=== PATIENT | male | born 1960 | race Caucasian/White ===

== ENCOUNTER 2020-02-18 07:34 | Day surgery (SDC) | payer MEDICAID, SELFPAY ==
[2020-02-15 12:55] VITALS: BMI 26.4
[2020-02-18 07:55] VITALS: BP 154/89; PULSE 77; RESP 18; TEMP 36.6; O2SAT 96
[2020-02-18] MEDS: sodium chloride 0.9% 1,000 ML 30 ML IV (08:08)
--- NOTE | 2020-02-18 08:14 | ANES.PREANE2 ---
Pre-Anesthetic Assessment Pre-Anesthetic Assessment: Height/Weight: Height 1.85 m Weight 90.718 kg Temp Pulse Resp BP Pulse Ox 97.8 F 77 18 154/89 96 02/18/20 07:55 02/18/20 07:55 02/18/20 07:55 02/18/20 07:55 02/18/20 07:55 Proposed Procedure: Operation Date: 02/18/20 09:00 Proposed Procedures p Colonoscopy G0105 Z80.0(Not Applicable) - Zacarias Elkins MD Familial anesthetic complications: denies Was Beta Romulo taken within 24 hours: N/A Last intake: Intake Last Liquid Date 02/17/20 Last Liquid Time 19:00 Last Solid Date 02/16/20 Last Solid Time 23:00 Last Intake: 00:00 Social: Social History: Tobacco and No alcohol Packs per day: 1 ppd Pack years: 43 Exam: Pre-Anes Outpt Exam: alert, oriented x 3 and clear to auscultation bilaterally Airway: Submandibular: WNL Cervical ROM: WNL MP: 2 Pulmonary: Pulmonary: COPD CV/HEM: CV/HEM: HTN : : None reported Hepatic: Hepatic: None reported GI: GI: GERD (denies ) and None reported Metabolic: Metabolic: None reported Musc/skel: Musc/skel: Lower Back Pain (upper back pain neck and shoulder ) Neuropsych: Neuropsych: None reported Anesthetic Plan: ASA status: 2 Anesthesia: Anesthesia Evaluation and MAC Meds/Allergies Current Medications: Current Medications Generic Name Dose Route Start Last Admin Trade Name Freq PRN Reason Stop Dose Admin Sodium Chloride 1,000 mls @ 30 ml s/hr 02/18/20 08:00 02/18/20 08:08 Sodium Chloride 0.9% IV 30 mls/hr .Q24H [place] Administration PFSH Anesthesia PFSH: Medical History (Updated 12/26/19 @ 11:17 by Zacarias Elkins MD) HTN (hypertension) Family History Father Cancer colon COPD (chronic obstructive pulmonary disease) Data Anesthesia Cardiac Studies: No Data to Display
--- NOTE | 2020-02-18 09:21 | PM.OPSURHP ---
Providers/Chief Complaint Primary Care Provider: Zacarias Elkins MD Chief Complaint: colonscopy History of Present Illness Nico Maya is a 59 year old male Medications/Allergies Home Medications Medication Instructions Recorded Confirmed Last Taken Type tizanidine 4 mg tablet 6 mg PO .at bedtime PRN #45 tab 11/05/19 02/15/20 02/17/20 Rx amlodipine 5 mg-benazepril 20 mg 1 cap PO DAILY #90 cap 12/03/19 02/15/20 02/18/20 06:30 Rx capsule aspirin 325 mg tablet 325 mg PO BID 12/26/19 02/15/20 02/15/20 History multivitamin 1 tab PO DAILY 12/26/19 02/15/20 02/15/20 History psyllium husk 0.52 gram capsule 0.52 gm PO DAILY 12/26/19 02/15/20 02/15/20 History tramadol 50 mg tablet 50 mg PO Q6H PRN #120 tab 01/22/20 02/15/20 02/17/20 Rx Allergies Allergy/AdvReac Type Severity Reaction Status Date / Time No Known Allergies Allergy Verified 12/26/19 11:00 PFSH PFSH: Medical History (Updated 12/26/19 @ 11:17 by Zacarias Elkins MD) HTN (hypertension) Family History Father Cancer colon COPD (chronic obstructive pulmonary disease) Vital Signs Vitals Signs: Last Vital Signs Temp 97.8 F 02/18/20 07:55 Pulse 77 02/18/20 07:55 Resp 18 02/18/20 07:55 BP 154/89 02/18/20 07:55 Pulse Ox 96 02/18/20 07:55 Coding Level of Care Code Acute Overhead [employer] for [facility]
[2020-02-18 09:46] VITALS: BP 156/79; PULSE 61; RESP 16; TEMP 36.2; O2SAT 98
--- NOTE | 2020-02-18 09:56 | ANE.PACU2 ---
Inpatient post-anesthesia follow up: Airway intact: Yes Vital signs: Temperature 97.2 F Pulse Rate 61 Respiratory Rate 16 Blood Pressure 156/79 Pulse Oximetry 98 Oxygen Delivery Me thod Nasal Cannula Oxygen Flow Rate 3.0 Fraction of Inspir ed Oxygen Hydration adequate: No Nausea and vomiting: No Pain level: 1 Mental status: Baseline
[2020-02-18 09:57] VITALS: BP 154/81; PULSE 61; RESP 18; O2SAT 97
== END 2020-02-18 10:05 | disposition home or self-care (01) ==
PROVIDERS: PCP Internal Medicine; Visit Provider Internal Medicine
PROC: 0DJD8ZZ Inspection of Lower Intestinal Tract, Via Natural or Artificial Opening Endoscopic (ICD-10-PCS; CPT 45378; principal; 2020-02-18 09:00)
DX: Z80.0 Family history of malignant neoplasm of digestive organs (principal); D12.4 Benign neoplasm of descending colon; J44.9 Chronic obstructive pulmonary disease, unspecified; I10 Essential (primary) hypertension; K21.9 Gastro-esophageal reflux disease without esophagitis
CPT/HCPCS: 12345; 45385; 88305; J2704; J7030

== ENCOUNTER → 2022-04-12 15:56 | Outpatient (BNVA) | payer MEDICAID, SELFPAY | PROVIDERS: PCP Internal Medicine; Visit Provider Internal Medicine | DX: I10 Essential (primary) hypertension (principal); F41.1 Generalized anxiety disorder; Z80.0 Family history of malignant neoplasm of digestive organs | CPT/HCPCS: 80053; 83036; 84443; 85025 ==

== ENCOUNTER → 2024-02-28 11:59 | Outpatient (BNVA) | payer MEDICAID, SELFPAY | PROVIDERS: PCP Family Medicine; Visit Provider Family Medicine | DX: I10 Essential (primary) hypertension (principal); Z79.899 Other long term (current) drug therapy | CPT/HCPCS: 80053; 80061; 84439; 84443; 85025 ==

== ENCOUNTER → 2024-04-03 11:59 | Outpatient (BNVA) | payer MEDICAID, SELFPAY | PROVIDERS: PCP Family Medicine; Visit Provider Family Medicine | DX: R25.2 Cramp and spasm (principal) | CPT/HCPCS: 80053 ==

== ENCOUNTER → 2024-12-31 11:58 | Outpatient (BNVA) | payer MEDICAID, SELFPAY | PROVIDERS: PCP Family Medicine; Visit Provider Family Medicine | DX: Z13.6 Encounter for screening for cardiovascular disorders (principal); Z12.5 Encounter for screening for malignant neoplasm of prostate | CPT/HCPCS: 80053; 80061; 84153; 84439; 84443; 85025 ==

== ENCOUNTER → 2025-04-25 09:13 | Outpatient (BNVA) | payer MEDICAID, SELFPAY | PROVIDERS: PCP Family Medicine; Visit Provider Student in an Organized Health Care Education/Training Program | DX: Z12.11 Encounter for screening for malignant neoplasm of colon (principal) | CPT/HCPCS: 99024; 99204 ==